=== PATIENT | male | born 1985 | race American Indian/Alaskan Native ===

== ENCOUNTER 2024-11-07 10:31 | Emergency (ER) | payer MEDICAID ==
[2024-11-07 11:34] VITALS: BP 131/89; PULSE 76
== END 2024-11-07 11:21 | disposition home or self-care (01) ==
LOC: FB.ED 10:31
DX: S06.0X1A Concussion with loss of consciousness of 30 minutes or less, initial encounter (principal); Z79.899 Other long term (current) drug therapy; F17.200 Nicotine dependence, unspecified, uncomplicated; W22.8XXA Striking against or struck by other objects, initial encounter
CPT/HCPCS: 70450; 99284

== ENCOUNTER 2024-11-07 14:20 | Emergency (ER) | payer MEDICAID ==
[2024-11-07 15:59] VITALS: BP 137/97; PULSE 68
== END 2024-11-07 15:25 ==
LOC: FB.ED 14:20
DX: S06.4X9A Epidural hemorrhage with loss of consciousness of unspecified duration, initial encounter (principal); S02.101A Fracture of base of skull, right side, initial encounter for closed fracture; F17.200 Nicotine dependence, unspecified, uncomplicated; Z79.899 Other long term (current) drug therapy; X58.XXXA Exposure to other specified factors, initial encounter
CPT/HCPCS: 70450; 72125; 99285

== ENCOUNTER 2025-05-24 07:58 | Day surgery (SDC) | payer MEDICAID ==
[2025-05-24] MEDS ORDERED: Propofol 200 MG/20 ML SDV IV ONE (07:59)
[2025-05-24] MEDS ORDERED: Midazolam 1 MG/ML 2 ML SDV IV ONE (07:59)
[2025-05-24] MEDS ORDERED: Sodium Chloride 0.9% 10 ML Syringe FLUSH PRN (08:00)
[2025-05-24] MEDS: Lactated Ringers 1,000 ML IV SCH (08:49)
[2025-05-24 11:40] VITALS: BP 109/66; PULSE 78
== END 2025-05-24 11:36 | disposition home or self-care (01) ==
LOC: FB.SDS 07:58
PROVIDERS: ATTEND Surgery
DX: K64.1 Second degree hemorrhoids (principal); F17.210 Nicotine dependence, cigarettes, uncomplicated; Z79.899 Other long term (current) drug therapy
CPT/HCPCS: 00811; A9270-GY; J2003; J2250; J2704; J7120